=== PATIENT | female | born 1945 | race Caucasian/White ===

== ENCOUNTER 2021-03-20 22:00 | Emergency (ER) | payer MEDICARE, SELFPAY ==
[2021-03-20 22:19] VITALS: BP 148/65; PULSE 61; RESP 12; TEMP 36.7; O2SAT 98; BMI 25.0
--- NOTE | 2021-03-20 22:22 | ECG_ITS ---
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 Measurements Intervals [place] Rate: 60 P: 74 [place]: 221 QRS: -24 QRSD: 107 T: 53 QT: 458 QTc: 460 Interpretive Statements SINUS RHYTHM WITH FIRST DEGREE AV BLOCK BORDERLINE LEFT AXIS DEVIATION [QRS AXIS < -20] No previous ECG available for comparison Electronically Signed On 03-21-2021 11:01:18 CDT by Dionicio Julio M.D. [email or web address]/store/[id number]
[2021-03-20 22:43] VITALS: BP 135/69; BP 142/95; BP 150/69; PULSE 62; PULSE 63; PULSE 64
--- NOTE | 2021-03-20 22:45 | XRR_ITS ---
PROCEDURE INFORMATION: Exam: XR Chest Exam date and time: 03/20/2021 10:46 PM Age: 75 years old Clinical indication: Other: Dizzy TECHNIQUE: Imaging protocol: XR of the chest. Views: 1 view. COMPARISON: No relevant prior studies available. FINDINGS: Lungs: Unremarkable. No consolidation. Pleural spaces: Unremarkable. No pleural effusion. No pneumothorax. Heart/Mediastinum: Unremarkable. No cardiomegaly. Bones/joints: Unremarkable. XR/XR chest 1V portable [id number] IMPRESSION: No acute findings.
--- NOTE | 2021-03-20 22:47 | CTR_ITS ---
PROCEDURE INFORMATION: Exam: CT Head Without Contrast Exam date and time: 03/20/2021 11:14 PM Age: 75 years old Clinical indication: Syncope and collapse; Patient HX: Syncope v seizure; Additional info: Syncope, ? seizure TECHNIQUE: Imaging protocol: Computed tomography of the head without contrast. Radiation optimization: All CT scans at this facility use at least one of these dose optimization techniques: automated exposure control; mA and/or kV adjustment per patient size (includes targeted exams where dose is matched to clinical indication); or iterative reconstruction. COMPARISON: No relevant prior studies available. RADIATION DOSE METRICS: Total DLP (mGy-cm): 792.12 FINDINGS: Brain: There is moderate cortical atrophy. Low-density changes in the white matter are consistent with nonspecific small vessel chronic ischemic change. There is no intracranial mass, hemorrhage or edema. Cerebral ventricles: No ventriculomegaly. Paranasal sinuses: Visualized sinuses are unremarkable. No fluid levels. Mastoid air cells: Visualized mastoid air cells are well aerated. Bones/joints: Unremarkable. No acute fracture. Soft tissues: Unremarkable. CT/CT head wo con* [id number] IMPRESSION: No acute finding. Radiation Dose CTDIVOL = (mGy): DLP = 792.12 (mGy-cm)
[2021-03-20 22:53] LABS: Basophils # 0.1 10^3/uL (0.0-0.1); Basophils % 0.8 %; Eosinophils # 0.2 10^3/uL (0.0-0.8); Eosinophils % 3.2 %; Hematocrit 42.4 % (37.0-47.0); Hemoglobin 13.8 g/dL (11.5-15.3); Lymphocytes # 0.9 10^3/uL (0.8-4.8); Lymphocytes % 14.4 %; Mean Corpuscular HGB Conc 32.5 g/dL (30.0-36.0); Mean Corpuscular Hemoglobin 28.3 pg (28.0-34.0); Mean Corpuscular Volume 86.9 fL (81-99); Mean Platelet Volume 9.5 fL (7.4-10.4); Monocytes # 0.5 10^3/uL (0.2-0.9); Monocytes % 7.5 %; Neutrophils # 4.59 10^3/uL (1.8-7.7); Neutrophils % 73.6 %; Nucleated Red Blood Cells % 0 %; Platelet Count 284 10^3/cmm (130-400); Red Blood Count 4.88 10^6/uL (4.1-5.3); Red Cell Distribution Width 13.2 % (12.1-15.1); White Blood Count 6.2 10^3/uL (4.0-10.0)
--- NOTE | 2021-03-20 23:08 | ED_ITS ---
HPI - Syncope General: Chief Complaint: Syncope Stated Complaint: dizzy,N/V,Passed out, Time Seen by Provider: 03/20/21 22:21 Source: patient and family Mode of arrival: ambulatory Limitations: no limitations History of Present Illness: HPI narrative: The patient is a 75-year-old female with a history of hypertension who presents to the emergency department after a syncopal episode. Her friend who was with her at the time said that she was standing and suddenly had a syncopal episode with both upper extremities appear to be in a tonic state. She also had urinary soilage. Whole episode lasted about a minute. She did not fall or hit her head. The patient states that she had no aura or prodromal symptoms other than feeling faint and the room getting dark. She has no prior history of seizures, she has no cardiac history. She was tired after the episode and is almost back to her baseline now except that she is really tired. She was very diaphoretic during the event. She just had dinner prior to the episode. MD complaint: loss of consciousness Onset (ago): hour(s) (1) Duration of episode: 1 -: minutes(s) Description of event: incontinence Prodromal symptoms: vision changes and lightheaded Witnessed: Yes - by Bystander Context: standing up Injuries sustained associated with event: none Associated symptoms: Reports lightheadedness and nausea; Deny abdominal pain, chest pain, fever(s), headache(s), short of breath, vertigo or weakness Treatments prior to arrival: none Review of Systems General: Reports: 10 or more systems reviewed and unremarkable except in HPI and below Const: Denies: fever(s) Card: Reports: lightheadedness; Denies: chest pain GI: Reports: nausea; Denies: abdominal pain Neuro: Denies: headache(s) or vertigo Physical Exam Const: COMMON NORMALS: no acute distress, average body habitus, patient oriented x3, no limitations, healthy appearing, alert and well nourished HENMT: COMMON NORMALS: normocephalic, atraumatic and moist oral mucous membranes HEAD & SCALP: normocephalic and atraumatic Eye: COMMON NORMALS: Equal, round and reactive pupils present, EOMs intact bilaterally, conjunctivae normal and no scleral icterus CONJUNCTIVA: Yes conjunctivae normal PUPIL: Yes Equal, round and reactive pupils present Neck/C-Spine: COMMON NORMALS: full ROM, supple, no meningeal signs, no JVD and No carotid bruits Resp: COMMON NORMALS: normal respiratory effort, No retractions, No use of accessory muscles, clear to auscultation bilaterally and percussion normal AUSCULTATION: clear to auscultation bilaterally PERCUSSION: percussion normal Cardio: COMMON NORMALS: no JVD, regular rate, regular rhythm, S1 normal heart sound present, S2 normal heart sound present, No gallops present (Cardio), No clicks present (Cardio), No murmurs present (Cardio), No rub (Cardio) and Peripheral pulses 2+ throughout RATE: regular rate RHYTHM: regular rhythm HEART SOUNDS: S1 normal heart sound present and S2 normal heart sound present PERIPHERAL PULSES: Peripheral pulses 2+ throughout GI: COMMON NORMALS: Normal to inspection, nondistended, normoactive bowel sounds present, Soft to palpation, non-tender, No hepatosplenomegaly present, no masses and no bruits PALPATION: Yes Soft to palpation and Yes No hepatosplenomegaly present Extremity: COMMON NORMALS: normal to inspection, full ROM, capillary refill normal, no calf tenderness and no pedal edema Neuro: COMMON NORMALS: patient oriented x3 SENSORIUM/ORIENTATION: Yes alert MENINGEAL SIGNS: Yes no meningeal signs Course Reevaluation(s): Reevaluation #1: Discussed her lab and imaging findings with her. Explained that they were all unremarkable. Explained to her that her symptoms are consistent with a seizure. Since she had only 1 this is her first seizure we will not initiate any therapy but she should follow-up with her primary care provider. She is advised that she has other episodes of seizures she will need antiepileptics. She voiced understanding and is in agreement with the plan. Time: 01:58 Vital Signs: Vital signs: Vital Signs Temperature 98.0 F 03/20/21 22:19 Pulse Rate 65 03/20/21 23:41 Respiratory Rate 17 03/20/21 23:41 Blood Pressure 146/84 03/20/21 23:41 Pulse Oximetry 92 03/20/21 23:41 MDM - Syncope MDM Narrative: Medical decision making narrative: 75-year-old female patient who has clinical features consistent with a seizure. She had what appeared to be a tonic seizure with urinary incontinence. Episode lasted less than a minute. Evaluation in the emergency department is unremarkable and she is discharged home with no new orders. Medical Records: Attestation: I reviewed the patient's medical records. Lab Data: Attestation: I reviewed the patient's lab results. Labs: Lab Results 03/20/21 03/20/21 03/20/21 Range/Units 22:40 22:40 22:40 WBC 6.2 (4.0-10.0) 10^3/ uL RBC 4.88 (4.1-5.3) 10^6/u L Hgb 13.8 (11.5-15.3) g/dL Hct 42.4 (37.0-47.0) % MCV 86.9 (81-99) fL MCH 28.3 (28.0-34.0) pg MCHC 32.5 (30.0-36.0) g/dL RDW 13.2 (12.1-15.1) % Plt Count 284 (130-400) 10^3/c mm MPV 9.5 (7.4-10.4) fL Neut % (Auto) 73.6 % Lymph % (Auto) 14.4 % [place] % (Auto) 7.5 % Eos % (Auto) 3.2 % Baso % (Auto) 0.8 % Neut # (Auto) 4.59 (1.8-7.7) 10^3/u L Lymph # (Auto) 0.9 (0.8-4.8) 10^3/u L [place] # (Auto) 0.5 (0.2-0.9) 10^3/u L Eos # (Auto) 0.2 (0.0-0.8) 10^3/u L Baso # (Auto) 0.1 (0.0-0.1) 10^3/u L Nucleated RBC % (a uto) 0 % Nucleated RBCs # 0.0 /100WBC Sodium 136 (136-145) mmol/L Potassium 3.6 (3.5-5.1) mmol/L Chloride 98 (98-107) mmol/L Carbon Dioxide 27 (22-29) mmol/L Anion Gap 14.6 (5-19) BUN 11 (8-23) mg/dL Creatinine 0.6 (0.5-0.9) mg/dL GFR Calculation Not Reportable Glucose 122 H (65-115) mg/dL Calculated Osmolal ity 283 L (285-295) mOsm/k g Calcium 9.4 (8.5-10.5) mg/dL Total Bilirubin 0.3 (0.15-1.2) mg/dL AST 32 (0-32) U/L ALT 31 (0-33) U/L Alkaline Phosphata se 129 H (35-105) IU/L Troponin T Baselin e 6 (0-10) ng/L Troponin T 120 Min [place] (0-10) ng/L Delta Troponin T (0-10) ABS# Total Protein 6.4 L (6.6-8.7) g/dL Albumin 4.7 (3.5-5.2) g/dL Globulin 1.7 (1.3-4.6) g/dL Lipase 29 (13-60) U/L 03/21/21 Range/Units 01:01 WBC (4.0-10.0) 10^3/ uL RBC (4.1-5.3) 10^6/u L Hgb (11.5-15.3) g/dL Hct (37.0-47.0) % MCV (81-99) fL MCH (28.0-34.0) pg MCHC (30.0-36.0) g/dL RDW (12.1-15.1) % Plt Count (130-400) 10^3/c mm MPV (7.4-10.4) fL Neut % (Auto) % Lymph % (Auto) % [place] % (Auto) % Eos % (Auto) % Baso % (Auto) % Neut # (Auto) (1.8-7.7) 10^3/u L Lymph # (Auto) (0.8-4.8) 10^3/u L [place] # (Auto) (0.2-0.9) 10^3/u L Eos # (Auto) (0.0-0.8) 10^3/u L Baso # (Auto) (0.0-0.1) 10^3/u L Nucleated RBC % (a uto) % Nucleated RBCs # /100WBC Sodium (136-145) mmol/L Potassium (3.5-5.1) mmol/L Chloride (98-107) mmol/L Carbon Dioxide (22-29) mmol/L Anion Gap (5-19) BUN (8-23) mg/dL Creatinine (0.5-0.9) mg/dL GFR Calculation Glucose (65-115) mg/dL Calculated Osmolal ity (285-295) mOsm/k g Calcium (8.5-10.5) mg/dL Total Bilirubin (0.15-1.2) mg/dL AST (0-32) U/L ALT (0-33) U/L Alkaline Phosphata se (35-105) IU/L Troponin T Baselin e (0-10) ng/L Troponin T 120 Min [place] 6.00 (0-10) ng/L Delta Troponin T 0 (0-10) ABS# Total Protein (6.6-8.7) g/dL Albumin (3.5-5.2) g/dL Globulin (1.3-4.6) g/dL Lipase (13-60) U/L Imaging Data^: CT Head: Attestation: I personally reviewed and interpreted this imaging study as follows: Radiologist's impression: [facility] [id number] Scan ReportSigned Patient: Chiqui Juan #: [id number]: 1945cct#:[id number]/Sex: 75 / FADM Date: 03/20/21Loc: ERRoom/Bed:Attending Dr: Ordering Provider/Ordering MD: Alvarado Mireles MD, [facility] [place] Date of Service: 03/20/21 Procedure(s): CT head wo con* [id number] Accession Number(s): [id number] Report Number: [id number] PROCEDURE INFORMATION: Exam: CT Head Without Contrast Exam date and time: 03/20/2021 11:14 PM Age: 75 years old Clinical indication: Syncope and collapse; Patient HX: Syncope v seizure; Additional info: Syncope, ? seizure TECHNIQUE: Imaging protocol: Computed tomography of the head without contrast. Radiation optimization: All CT scans at this facility use at least one of these dose optimization techniques: automated exposure control; mA and/or kV adjustment per patient size (includes targeted exams where dose is matched to clinical indication); or iterative reconstruction. COMPARISON: No relevant prior studies available. RADIATION DOSE METRICS: Total DLP (mGy-cm): 792.12 FINDINGS: Brain: There is moderate cortical atrophy. Low-density changes in the white matter are consistent with nonspecific small vessel chronic ischemic change. There is no intracranial mass, hemorrhage or edema. Cerebral ventricles: No ventriculomegaly. Paranasal sinuses: Visualized sinuses are unremarkable. No fluid levels. Mastoid air cells: Visualized mastoid air cells are well aerated. Bones/joints: Unremarkable. No acute fracture. Soft tissues: Unremarkable. CT/CT head wo con* [id number] IMPRESSION: No acute finding. Radiation Dose CTDIVOL = (mGy): DLP = 792.12 (mGy-cm) Dictated By:August Ramos By:August Ramos Date/Time:03/20/21 2344DD/ 2343 CXR: Attestation: I personally reviewed and interpreted this imaging study as follows: Radiologist's impression: [address] [address]VBbt ReportSigned Patient: Chiqui Juan #: [id number]: 1945cct#:[id number]/Sex: 75 / FADM Date: 03/20/21Loc: ERRoom/Bed:Attending Dr: Ordering Provider/Ordering MD: Medina Serna NP Date of Service: 03/20/21 Procedure(s): XR chest 1V portable [id number] Accession Number(s): [id number] Report Number: [id number] PROCEDURE INFORMATION: Exam: XR Chest Exam date and time: 03/20/2021 10:46 PM Age: 75 years old Clinical indication: Other: Dizzy TECHNIQUE: Imaging protocol: XR of the chest. Views: 1 view. COMPARISON: No relevant prior studies available. FINDINGS: Lungs: Unremarkable. No consolidation. Pleural spaces: Unremarkable. No pleural effusion. No pneumothorax. Heart/Mediastinum: Unremarkable. No cardiomegaly. Bones/joints: Unremarkable. XR/XR chest 1V portable [id number] IMPRESSION: No acute findings. Dictated By:August Ramos By:August Ramos Date/Time:03/20/212327DD/ 26 EKG Data^: EKG 1: Attestation: I personally reviewed and interpreted this EKG as follows: EKG interpretation date: 03/20/21 EKG interpretation time: 22:32 Prior EKG tracings: not available for review Interpretation: Sinus rhythm with first-degree AV block. Heart rate [address] changes. Normal axis. EKG 2: Attestation: I personally reviewed and interpreted this EKG as follows: EKG interpretation date: 03/21/21 EKG interpretation time: 00:00 Prior EKG tracings: available for review Interpretation: Sinus rhythm with first-degree AV block. Heart rate [address] changes. No significant change from earlier EKG 3: Attestation: I personally reviewed and interpreted this EKG as follows: EKG interpretation date: 03/21/21 EKG interpretation time: 01:06 Prior EKG tracings: available for review Interpretation: Sinus rhythm with first-degree AV block. Heart rate [address] changes. No significant change from earlier Discharge Plan Discharge Patient Disposition: Home Clinical Impression: Seizure Condition: Stable Discharge Orders: Discharge ED (Routine); Ordered 03/21/21 Ordered By: Alvarado Mireles Discharge Diet: Usual diet Discharge Activity: Increase activity as tolerated Patient Instructions: Seizures Activity Restrictions/Additional Instructions: From your symptoms I believe you had a seizure today. However since this is a first seizure we are not going to start any medications. If you have or have subsequent seizures then you will need to be started on antiseizure medicines. Continue your home medications as prescribed. Follow-up with your primary care provider within 3 days. Ensure that you get plenty of rest sleep deprivation is one of the common causes of seizures. Coding Level of Care Code ED Docent Coordinator for Chg Fwd Exam Comprehensive
[2021-03-20 23:20] LABS: Troponin(5th) Baseline 6 ng/L (0-10)
[2021-03-20 23:22] LABS: Alanine Aminotransferase 31 U/L (0-33); Albumin Level 4.7 g/dL (3.5-5.2); Alkaline Phosphatase 129 IU/L (35-105); Anion Gap 14.6 (5-19); Aspartate Amino Transferase 32 U/L (0-32); Blood Urea Nitrogen 11 mg/dL (8-23); Calcium 9.4 mg/dL (8.5-10.5); Carbon Dioxide 27 mmol/L (22-29); Chloride 98 mmol/L (98-107); Creatinine Clr Calc Pharmacy 65.2453; Globulin 1.7 g/dL (1.3-4.6); Glucose 122 mg/dL (65-115); Lipase 29 U/L (13-60); Osmolality Calculated 283 mOsm/kg (285-295); Potassium 3.6 mmol/L (3.5-5.1); Sodium 136 mmol/L (136-145); Total Bilirubin 0.3 mg/dL (0.15-1.2); Total Protein 6.4 g/dL (6.6-8.7)
[2021-03-20 23:41] VITALS: BP 146/84; PULSE 65; RESP 17; O2SAT 92
[2021-03-20] MEDS: ondansetron 2 mg/ML SDV 2 mL 4 MG IVP (23:45)
[2021-03-21 01:55] LABS: Troponin 5 2HR Delta 0 ABS# (0-10)
[2021-03-21 02:18] VITALS: BP 120/85; PULSE 70; RESP 17; O2SAT 95
--- NOTE | 2021-03-21 04:22 | ECG_ITS ---
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 Measurements Intervals [place] Rate: 63 P: 63 [place]: 216 QRS: -27 QRSD: 104 T: 31 QT: 427 QTc: 439 Interpretive Statements SINUS RHYTHM WITH FIRST DEGREE AV BLOCK BORDERLINE LEFT AXIS DEVIATION [QRS AXIS < -20] Compared to ECG 03/21/2021 00:00:02 No significant changes Electronically Signed On 03-21-2021 11:05:07 CDT by Dionicio Julio M.D. [id number]
== END 2021-03-21 02:18 | disposition home or self-care (01) ==
PROVIDERS: Registered Nurse; Emergency Provider Family Medicine
DX: R56.9 Unspecified convulsions (principal)
CPT/HCPCS: 70450; 71045; 80053; 83690; 84484; 85025; 93005; 96374; 99284; J2405